=== PATIENT | male | born 1960 | race Caucasian/White ===

== ENCOUNTER 2016-09-12 14:56 | Emergency (ER) | payer MEDICARE, MEDICAID ==
[2016-09-12] MEDS ORDERED: Morphine TAB Extended Release (*) 30 MG TAB.ER PO ONE (15:20)
--- NOTE | 2016-09-12 15:54 | RAD ---
INDICATION: Pain post fall from wheelchair to ground. COMPARISON: March 10, 2016 TECHNIQUE: Dual energy PA and routine lateral views of the chest were obtained. REPORT: Elevated lung volumes with minimal prominence of the interstitial markings. No alveolar consolidation, focal pulmonary lesion, pleural effusion, pneumothorax. Negative for cardiomegaly or prominence of the central pulmonary vasculature. Mildly tortuous descending thoracic aorta. No thoracic fractures evident. IMPRESSION: 1. No traumatic injury evident. 2. Stigmata of probable chronic obstructive pulmonary disease.
--- NOTE | 2016-09-12 15:56 | RAD ---
INDICATION: RIGHT wrist pain post fall. COMPARISON: February 11, 2016 RIGHT hand radiographs. TECHNIQUE: AP, lateral, and oblique views RIGHT wrist. REPORT: Normal articular alignment. No cortical disruption or suspicious trabecular irregularity to suggest fracture. Mild soft tissue swelling about the wrist. IMPRESSION: Negative for fracture. If there is high index of suspicion for an occult scaphoid fracture repeat exam in 7 - 10 days would be suggested.
[2016-09-12 16:34] VITALS: BP 132/85
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
== END 2016-09-12 16:43 | disposition home or self-care (01) ==
LOC: ED 14:56
DX: S60.211A Contusion of right wrist, initial encounter (principal); S20.211A Contusion of right front wall of thorax, initial encounter; W05.0XXA Fall from non-moving wheelchair, initial encounter; Y92.9 Unspecified place or not applicable; M54.9 Dorsalgia, unspecified; Z86.73 Personal history of transient ischemic attack (TIA), and cerebral infarction without residual deficits; I25.2 Old myocardial infarction; I10 Essential (primary) hypertension; J44.9 Chronic obstructive pulmonary disease, unspecified; I50.9 Heart failure, unspecified; Z88.0 Allergy status to penicillin; Z72.0 Tobacco use
CPT/HCPCS: 71020; 99283; A9270-GY

== ENCOUNTER 2017-06-13 18:17 | Emergency (ER) | payer MEDICARE, MEDICAID ==
[2017-06-13] MEDS ORDERED: Morphine INJ* 4 MG/ML 1 ML CARPUJECT IM ONE (20:02)
[2017-06-13] MEDS ORDERED: Ondansetron ODT TAB* 4 MG PO ONE (20:02)
[2017-06-13] MEDS ORDERED: Gabapentin CAP(*) 300 MG PO ONE (20:02)
[2017-06-13 20:32] LABS: Urine Bacteria 1+ (Absent); Urine Bilirubin Negative (Negative); Urine Glucose Negative (Negative); Urine Nitrite Negative (Negative)
[2017-06-13 21:12] VITALS: BP 141/98
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
== END 2017-06-13 20:50 | disposition home or self-care (01) ==
LOC: ED 18:17
DX: M54.5 Low back pain (principal); I10 Essential (primary) hypertension; R11.2 Nausea with vomiting, unspecified; F17.210 Nicotine dependence, cigarettes, uncomplicated
CPT/HCPCS: 81003; 81015; 87077; 87086; 99283; A9270-GY; J2270

== ENCOUNTER → 2017-06-30 02:11 | Emergency (ER) | payer MEDICARE, MEDICAID ==
[~2017-06-30 02:11] MED LIST: DOXYcycline CAP(*) 100 MG PO ONE; Tetan/Diph/Pertus SYR(Tdap)* 0.5 ML SYR(BOOSTRIX) use SYR IM ONE
[2017-06-30 02:14] VITALS: BP 139/86
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
== END | disposition home or self-care (01) ==
LOC: ED 02:11
DX: S30.861A Insect bite (nonvenomous) of abdominal wall, initial encounter (principal); W57.XXXA Bitten or stung by nonvenomous insect and other nonvenomous arthropods, initial encounter; Y93.9 Activity, unspecified; Y92.9 Unspecified place or not applicable; Z23 Encounter for immunization; I25.10 Atherosclerotic heart disease of native coronary artery without angina pectoris; I10 Essential (primary) hypertension; I50.9 Heart failure, unspecified; I25.2 Old myocardial infarction; Z86.73 Personal history of transient ischemic attack (TIA), and cerebral infarction without residual deficits; J44.9 Chronic obstructive pulmonary disease, unspecified; Z88.0 Allergy status to penicillin; F17.210 Nicotine dependence, cigarettes, uncomplicated
CPT/HCPCS: 86618; 90471; 90715; 99282; A9270-GY

== ENCOUNTER 2017-10-16 14:31 | Emergency (ER) | payer MEDICAID, MEDICARE ==
[2017-10-16] MEDS ORDERED: Morphine INJ* 4 MG/ML 1 ML CARPUJECT IV ONE ×3 (14:54→18:30)
[2017-10-16 14:56] LABS: ABS Basophils 0.1 10^3/ul (0-0.2); ABS Eosinophils 0 10^3/ul (0-0.6); ABS Lymphocytes 1.4 10^3/ul (1.0-4.8); ABS Monocytes 0.3 10^3/ul (0-0.8); ABS Neutrophils 3.2 10^3/ul (1.5-7.7); ABS Nucleated RBC 0 10^3/ul; Eosinophil % 0.8 % (0-6); Hematocrit 42 % (42-52); Hemoglobin 14.5 g/dl (14.0-18.0); Lymphocyte % 27.2 % (25-47); Mean Corpuscular HGB Conc 35 g/dl (31-36); Mean Corpuscular Hemoglobin 30 pg (27-31); Mean Corpuscular Volume 87 fL (80-94); Mean Platelet Volume 8 um3 (7.4-10.4); Nucleated Red Blood Cells % 0; Platelet Count 171 10^3/ul (150-450); Red Blood Count 4.84 10^6/ul (4.0-5.4); Red Cell Distribution Width 14 % (10.5-15)
[2017-10-16] MEDS ORDERED: Iohexol 300* (CONTRAST) 10 ML SDV IV ONE (15:38)
--- NOTE | 2017-10-16 16:28 | RAD ---
INDICATION: Head injury, headache. COMPARISON: Comparison is made with a prior CT of the brain from October 01, 2015. TECHNIQUE: Contiguous axial sections of the brain were obtained from the skull base to the vertex without contrast. FINDINGS: The ventricles, cisterns and sulci are within normal limits. No significant focal abnormality or mass effect is seen. There is no evidence for hemorrhage. No significant focal osseous abnormality is seen. The visualized portion of the paranasal sinuses and mastoid air cells appear clear. IMPRESSION: NO EVIDENCE FOR ACUTE INTRACRANIAL ABNORMALITY.
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
--- NOTE | 2017-10-16 16:31 | RAD ---
HISTORY: Trauma, headache, chest pain, back pain COMPARISONS: January 25, 2016 TECHNIQUE: Multiple contiguous axial CT scans were obtained of the chest, abdomen, and pelvis after the administration of intravenous contrast. Coronal and sagittal multiplanar reformations are submitted for review.. Oral contrast was not administered. Delayed images were obtained through the abdomen and pelvis. FINDINGS: CHEST NECK AND THYROID: The lower neck and thyroid are unremarkable. CHEST WALL: There is no lower cervical, axillary, or supraclavicular lymphadenopathy by size criteria. HEART AND PERICARDIUM: The heart is unremarkable. AORTA AND PULMONARY VASCULATURE: The aorta and pulmonary vasculature are normal. MEDIASTINUM: There is no mediastinal lymphadenopathy by size criteria. JACKIE: There is no hilar lymphadenopathy by size criteria. AIRWAY AND ESOPHAGUS: The airway is unremarkable, without endobronchial filling defect. The esophagus is grossly normal. LUNG PARENCHYMA: There is extensive centrilobular emphysematous change. PLEURA: No pleural abnormalities are noted. BONES AND SOFT TISSUES: No bone or soft tissue abnormalities are noted. ABDOMEN/PELVIS: LIVER: The liver is normal in shape, size, contour, and attenuation. BILE DUCTS: There is no intrahepatic or extrahepatic biliary dilatation. GALLBLADDER: The gallbladder is normal, without pericholecystic inflammatory change. PANCREAS: The pancreas is normal, without mass or ductal dilatation. SPLEEN: Normal in size and appearance. UPPER GI TRACT: Evaluation of the gastrointestinal tract is limited by incomplete gastric distention. The upper GI tract is unremarkable. SMALL BOWEL & MESENTERY: The small bowel is normal in contour, course, and caliber. There is no obstruction or dilatation. COLON: There are multiple diverticula of the distal colon. There is no pericolonic inflammatory change. ADRENALS: Normal bilaterally. KIDNEYS: The kidneys are normal in shape, size, contour, and axis. There is no hydronephrosis or nephrolithiasis. BLADDER: The bladder is smooth in contour. PELVIC ORGANS: The prostate gland is normal. The seminal vesicles are symmetric. AORTA: There is calcific atherosclerotic disease of the abdominal aorta and its branches, without aneurysmal dilatation IVC: Unremarkable LYMPH NODES: There is no lymphadenopathy by size criteria. ABDOMINAL WALL: There is no evidence for abdominal wall hernia. BONES AND SOFT TISSUES: Mild degenerative changes are noted OTHER: None IMPRESSION: 1. EMPHYSEMA. 2. DIVERTICULOSIS. 3. ATHEROSCLEROSIS. 4. NO ACUTE CT PATHOLOGY OF THE VISUALIZED CHEST, ABDOMEN, OR PELVIS
--- NOTE | 2017-10-16 17:28 | RAD ---
HISTORY: Left hand pain, trauma COMPARISONS: None VIEWS: 4, Frontal, lateral, and oblique views of the left hand FINDINGS: BONE DENSITY: Normal. BONES: There is no displaced fracture. JOINTS: There is no arthropathy. ALIGNMENT: There is no dislocation. SOFT TISSUES: Unremarkable. OTHER FINDINGS: None. IMPRESSION: NO ACUTE OSSEOUS INJURY. IF SYMPTOMS PERSIST, RECOMMEND REPEAT IMAGING.
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
[2017-10-16 19:41] VITALS: BP 131/82
== END 2017-10-16 19:46 | disposition home or self-care (01) ==
LOC: ED 14:31
DX: S06.9X9A Unspecified intracranial injury with loss of consciousness of unspecified duration, initial encounter (principal); V49.9XXA Car occupant (driver) (passenger) injured in unspecified traffic accident, initial encounter; Y93.9 Activity, unspecified; Y92.9 Unspecified place or not applicable; M25.562 Pain in left knee; M54.9 Dorsalgia, unspecified; M54.2 Cervicalgia; R06.02 Shortness of breath; R10.84 Generalized abdominal pain; J43.9 Emphysema, unspecified; K57.30 Diverticulosis of large intestine without perforation or abscess without bleeding; I70.0 Atherosclerosis of aorta; I25.2 Old myocardial infarction; I11.0 Hypertensive heart disease with heart failure; I50.9 Heart failure, unspecified; I25.10 Atherosclerotic heart disease of native coronary artery without angina pectoris; Z86.73 Personal history of transient ischemic attack (TIA), and cerebral infarction without residual deficits; J44.9 Chronic obstructive pulmonary disease, unspecified; Z88.0 Allergy status to penicillin; F17.200 Nicotine dependence, unspecified, uncomplicated
CPT/HCPCS: 36415; 70450; 71260; 72125; 74177; 80053; 85025; 96374; 96375; 99285; J2270; Q9967

== ENCOUNTER 2017-10-26 13:28 | Emergency (ER) | payer SELFPAY ==
[2017-10-26 13:38] VITALS: BP 126/83
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
[2017-10-26] MEDS: Ibuprofen TAB* 800 MG PO ONE (16:10)
--- NOTE | 2017-10-26 16:25 | RAD ---
INDICATION: Left third digit injury COMPARISON: Left hand October 16, 2017 TECHNIQUE: AP, lateral, and oblique views were obtained. FINDINGS: There is no acute fracture or dislocation. There is minor interphalangeal osteoarthritis. There is no significant soft tissue swelling. IMPRESSION: NO ACUTE FRACTURE.
== END 2017-10-26 17:04 | disposition home or self-care (01) ==
LOC: ED 13:28
DX: S63.613A Unspecified sprain of left middle finger, initial encounter (principal); V89.2XXA Person injured in unspecified motor-vehicle accident, traffic, initial encounter; Y92.9 Unspecified place or not applicable; F17.200 Nicotine dependence, unspecified, uncomplicated; Z88.0 Allergy status to penicillin
CPT/HCPCS: 73140; 99282; A9270-GY

== ENCOUNTER 2018-10-17 01:59 | Emergency (ER) | payer MEDICARE, MEDICAID ==
[2018-10-17] MEDS ORDERED: Ketorolac INJ* 30 MG/ML 1 ML VIAL IV PUSH ONE (02:12)
[2018-10-17] MEDS ORDERED: fentaNYL* 50 MCG/ML 2 ML VIAL (100 MCG VIAL) IV SLOW PU ONE (02:12)
[2018-10-17] MEDS ORDERED: Metoclopramide IV* 5 MG/ML 2 ML VIAL IV SLOW PU ONE (02:13)
[2018-10-17] MEDS ORDERED: NS 0.9% 1000 ML** 1,000 ML IV ONE (02:13)
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
[2018-10-17 02:26] LABS: ABS Basophils 0 10^3/ul (0-0.2); ABS Eosinophils 0 10^3/ul (0-0.6); ABS Lymphocytes 1.4 10^3/ul (1.0-4.8); ABS Monocytes 0.8 10^3/ul (0-0.8); ABS Neutrophils 5.3 10^3/ul (1.5-7.7); ABS Nucleated RBC 0 10^3/ul; Eosinophil % 0.4 %; Hematocrit 44 % (42-52); Hemoglobin 15.2 g/dl (14.0-18.0); Lymphocyte % 18.6 %; Mean Corpuscular HGB Conc 35 g/dl (31-36); Mean Corpuscular Hemoglobin 29 pg (27-31); Mean Corpuscular Volume 85 fL (80-94); Mean Platelet Volume 7.8 fL (7.4-10.4); Nucleated Red Blood Cells % 0; Platelet Count 170 10^3/ul (150-450); Red Blood Count 5.16 10^6/ul (4.00-5.40); Red Cell Distribution Width 14 % (10.5-15); White Blood Count 7.5 10^3/ul (3.5-10.8)
[2018-10-17 02:33] LABS: Activated Partial Thrombo Time 30.8 seconds (26.0-36.3); INR 1.01 (0.77-1.02)
[2018-10-17 02:45] LABS: Albumin 3.8 g/dL (3.2-5.2); Albumin/Globulin Ratio 1.5 (1-3); BUN/Creatinine Ratio 13.3 (8-20); C Reactive Protein 16.27 mg/L (<8.01); Calcium 9.2 mg/dL (8.6-10.3); EGFR African American 94.7 (>60); EGFR Non-African American 78.3 (>60); Globulin 2.6 g/dL (2-4); Magnesium 1.9 mg/dL (1.9-2.7); Total Bilirubin 0.6 mg/dL (0.2-1.0); Total Protein 6.4 g/dL (6.4-8.9)
[2018-10-17 03:47] LABS: Urine Appearance Clear; Urine Bilirubin Negative (Negative); Urine Blood Negative (Negative); Urine Color Yellow; Urine Glucose Negative (Negative); Urine Ketones Negative (Negative); Urine Nitrite Negative (Negative); Urine Protein Negative (Negative); Urine Urobilinogen Negative (Negative)
[2018-10-17 04:28] VITALS: BP 148/69
== END 2018-10-17 04:27 | disposition home or self-care (01) ==
LOC: ED 01:59
DX: R10.32 Left lower quadrant pain (principal); K57.30 Diverticulosis of large intestine without perforation or abscess without bleeding; R11.0 Nausea; R43.9 Unspecified disturbances of smell and taste; M79.10 Myalgia, unspecified site; I11.0 Hypertensive heart disease with heart failure; I50.9 Heart failure, unspecified; J44.9 Chronic obstructive pulmonary disease, unspecified; Z88.0 Allergy status to penicillin; F17.200 Nicotine dependence, unspecified, uncomplicated
CPT/HCPCS: 36415; 74176; 80053; 81003; 82150; 83690; 83735; 85025; 85610; 85730; 86140; 96361; 96374; 96375; 99283; J1885; J2765; J3010; Q9967

== ENCOUNTER 2019-02-25 07:04 | Emergency (ER) | payer MEDICARE, MEDICAID ==
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
[2019-02-25 08:19] VITALS: BP 171/103
== END 2019-02-25 08:18 | disposition home or self-care (01) ==
LOC: ED 07:04
DX: L02.214 Cutaneous abscess of groin (principal); F17.210 Nicotine dependence, cigarettes, uncomplicated
CPT/HCPCS: 10060; 87070; 87077; 87186; 87205; 87640; 87641; 99282